=== PATIENT | female | born 2000 | race American Indian/Alaskan Native ===

== ENCOUNTER 2020-08-23 05:47 | Emergency (ER) | payer OTHER, MEDICAID ==
[2020-08-23 06:25] VITALS: BP 115/70
[2020-08-23] MEDS ORDERED: IBUPROFEN 600 MG TAB PO ONE (07:41)
--- NOTE | 2020-08-23 07:57 | Emergency Department Report ---
ED Lower Extremity HPI - General Chief Complaint: Extremity Problem,Nontraumatic Stated Complaint: POSSIBLE BROKEN TOE Time Seen by Provider: 08/23/20 07:23 Source: patient Mode of arrival: Ambulatory Limitations: No Limitations - History of Present Illness Initial Comments: 19-year-old female presents to the ER today with left great toe pain. Patient s tates that she slipped and fell about 2 weeks ago injuring her left great toe. She states that at the time of the injury her left great toe was significantly swollen. She states that the swelling has improved but she still continues to have pain in the toe. This is her first time getting checked out after the injury. She reports no other symptoms at this time. MD Complaint: other (Left great toe injury) -: week(s) (2) Injury: Toes: Left (Left great toe) Improves With: nothing Worsens With: movement, palpation Context: fall, other (Patient states that she was walking when she slipped and fell in water, injuring her left great toe) Associated Symptoms: swelling - Related Data Previous Rx's Medication Instructions Recorded Last Taken Type Ibuprofen [Motrin] 600 mg PO Q8H PRN #30 tablet 08/23/20 Unknown Rx Allergies Allergy/AdvReac Type Severity Reaction Status Date / Time No Known Allergies Allergy Unverified 08/23/20 06:20 ED Review of Systems ROS: Stated complaint: POSSIBLE BROKEN TOE Other details as noted in HPI Comment: All other systems reviewed and negative Respiratory: denies: cough, orthopnea, shortness of breath, SOB with exertion, SOB at rest, wheezing Cardiovascular: denies: chest pain, palpitations, dyspnea on exertion, edema, syncope, paroxysmal nocturnal dyspnea Musculoskeletal: joint swelling, arthralgia Skin: denies: rash, lesions Neurological: denies: headache, weakness, paresthesias Psychiatric: denies: anxiety, depression, auditory hallucinations, visual hallucinations, homicidal thoughts, suicidal thoughts Hematological/Lymphatic: denies: easy bleeding, easy bruising ED Past Medical Hx - Past Medical History Previous Medical History?: No - Surgical History Past Surgical History?: No - Social History Smoking Status: Never Smoker Substance Use Type: None - Medications Home Medications: Home Medications Medication Instructions Recorded Confirmed Last Taken Type Ibuprofen [Motrin] 600 mg PO Q8H PRN #30 tablet 08/23/20 Unknown Rx ED Physical Exam - General Limitations: No Limitations General appearance: alert, in no apparent distress - Head Head exam: Present: atraumatic, normocephalic, normal inspection - Respiratory Respiratory exam: Present: normal lung sounds bilaterally. Absent: respiratory distress - Cardiovascular Cardiovascular Exam: Present: regular rate, normal rhythm, normal heart sounds - Extremities Exam Extremities exam: Present: full ROM (Left great toe), tenderness (Tenderness to palpation about the IP joint of the left great toe), normal capillary refill, joint swelling (Mild swelling noted about the IP joint of the left great toe) - Neurological Exam Neurological exam: Present: alert, oriented X3, CN II-XII intact, normal gait. Absent: motor sensory deficit - Psychiatric Psychiatric exam: Present: normal affect, normal mood - Skin Skin exam: Present: intact ED Course Vital Signs 08/23/20 08/23/20 06:22 07:54 Temperature 98.8 F Pulse Rate 73 Respiratory 16 18 Rate Blood Pressure 115/70 O2 Sat by Pulse 100 Oximetry ED Lower Extremity MDM - Radiology Data Radiology results: report reviewed Patient: BEN HAYES MR#: [id number] : 2000 Acct:[id number] Age/Sex: 19 / F ADM Date: 08/23/20 Loc: ED Attending Dr: Ordering Physician: BARB ONTIVEROS Date of Service: 08/23/20 Procedure(s): XR toe(s) 2+V LT Accession Number(s): [id number] cc: BARB ONTIVEROS Fluoro Time In Minutes: XR toe(s) 2+V LT INDICATION / CLINICAL INFORMATION: left great toe pain/injury 2 weeks ago COMPARISON: None available. FINDINGS: BONES / JOINT(S): No acute fracture or subluxation. SOFT TISSUES: No significant abnormality. ADDITIONAL FINDINGS: None. IMPRESSION: No acute process. Signer Name: Mulugeta Fournier MD Signed: 08/23/2020 8:17 AM Workstation Name: [id number] Transcribed By: PONCHO Dictated By: MULUGETA FOURNIER MD Electronically Authenticated By: MULUGETA FOURNIER MD Signed Date/Time: 08/23/20816 DD/ 5 TD/TT: Critical care attestation.: If time is entered above; I have spent that time in minutes in the direct care of this critically ill patient, excluding procedure time. ED Disposition Clinical Impression: Sprain of toe, great, left Disposition: DC-01 TO HOME OR SELFCARE Is pt being admited?: No Does the pt Need Aspirin: No Condition: Stable Instructions: Foot Sprain Additional Instructions: Take the ibuprofen as prescribed. Try not to do much walking or strenuous activity for another week. Elevate your foot as often as you can. Follow-up with the retail loss prevention specialist if you symptoms not improving. Return to the ER if your symptoms worsens or changes in any way. Prescriptions: Ibuprofen [Motrin] 600 mg PO Q8H PRN #30 tablet PRN Reason: Pain Referrals: JB GODOY MD [Staff Physician] - 7-10 days Time of Disposition: 08:29
--- NOTE | 2020-08-23 08:21 | XRay Report ---
XR toe(s) 2+V LT INDICATION / CLINICAL INFORMATION: left great toe pain/injury 2 weeks ago COMPARISON: None available. FINDINGS: BONES / JOINT(S): No acute fracture or subluxation. SOFT TISSUES: No significant abnormality. ADDITIONAL FINDINGS: None. IMPRESSION: No acute process. Signer Name: Dariel Fournier MD Signed: 08/23/2020 8:17 AM Workstation Name: [id number]
== END 2020-08-23 08:37 | disposition home or self-care (01) ==
LOC: ED 05:47
DX: S93.502A Unspecified sprain of left great toe, initial encounter (principal); Z79.899 Other long term (current) drug therapy; W18.30XA Fall on same level, unspecified, initial encounter; Y93.89 Activity, other specified; Y92.89 Other specified places as the place of occurrence of the external cause; Y99.8 Other external cause status
CPT/HCPCS: 99283